=== PATIENT | female | born 1960 | race Caucasian/White ===

== ENCOUNTER 2016-11-09 17:01 | Emergency (ER) | payer MEDICAID ==
[~2016-11-09] VITALS: Ht 152.4 cm; Wt 45.4 kg
[2016-11-09 17:53] LABS: Basophils # (auto) 0.1 uL; Basophils % (auto) 0.6 % (0.0-2.0); CONDITION Y; Eosinophils # (auto) 0.1 uL; Eosinophils % (auto) 1.2 % (0.0-7.0); Hematocrit 45.2 % (36.0-46.0); Lymphocytes % (auto) 23.1 % (10.0-50.0); Mean Corpuscular Hemoglobin 30.3 pg (28.0-32.0); Mean Corpuscular Hgb Conc. 33.2 g/dL (32.0-36.0); Mean Corpuscular Volume 91.3 fL (80.0-100.0); Mean Platelet Volume 8.3 fL (7.4-10.4); Monocytes # (auto) 0.7 uL; Monocytes % (auto) 8.5 % (0.0-12.0); Neutrophils # (auto) 5.7 uL; Neutrophils % (auto) 66.6 % (37.0-80.0); Platelet Count (auto) 207 10^3/uL (140-450); Red Cell Distribution Width 14.1 % (11.6-16.0); White Blood Cell 8.6 10^3/uL (4.4-10.8)
[2016-11-09 18:24] LABS: Albumin 3.3 g/dL (3.4-5.0); BUN/Creatinine Ratio 43.3; Bilirubin, Total 0.9 mg/dL (0.2-1.0); Calcium 9.2 mg/dL (8.5-10.1); Potassium 3.7 mmol/L (3.5-5.1); Total Protein 6.4 g/dL (6.4-8.2)
[2016-11-09] MEDS ORDERED: SODIUM CHLORIDE 0.9% 1,000 ML IV ONE (23:30)
[2016-11-10 05:29] VITALS: BP 117/79
== END 2016-11-10 07:41 | disposition home or self-care (01) ==
LOC: EDBD 17:01 → ER 17:08
DX: R55 Syncope and collapse (principal); R40.4 Transient alteration of awareness; G89.29 Other chronic pain; M54.9 Dorsalgia, unspecified
CPT/HCPCS: 36415; 70450; 71010; 72125; 80053; 80307; 85025; 93005; 96360; 99285; J7030

== ENCOUNTER 2017-08-23 13:47 | Emergency (ER) | payer MEDICAID ==
[~2017-08-23] VITALS: Ht 152.4 cm; Wt 50.8 kg
[2017-08-23 13:50] VITALS: BP 129/75
[2017-09-04] MEDS ORDERED: LEVO500T21 PO (10:10)
[2017-09-04] MEDS ORDERED: METR500T PO (10:10)
== END 2017-08-23 18:48 | disposition left against medical advice (07) ==
LOC: ER 13:47
DX: M25.562 Pain in left knee (principal); Z53.21 Procedure and treatment not carried out due to patient leaving prior to being seen by health care provider

== ENCOUNTER 2017-08-24 10:34 | Emergency (ER) | payer MEDICAID ==
[~2017-08-24] VITALS: Ht 152.4 cm; Wt 50.8 kg
[2017-08-24 13:42] VITALS: BP 148/76
[2017-09-04] MEDS ORDERED: LEVO500T21 PO (10:10)
[2017-09-04] MEDS ORDERED: METR500T PO (10:10)
== END 2017-08-24 13:45 | disposition home or self-care (01) ==
LOC: ER 10:40
DX: M79.605 Pain in left leg (principal); R07.9 Chest pain, unspecified; F17.210 Nicotine dependence, cigarettes, uncomplicated; Z88.6 Allergy status to analgesic agent; Z88.8 Allergy status to other drugs, medicaments and biological substances; Z90.710 Acquired absence of both cervix and uterus; Z90.49 Acquired absence of other specified parts of digestive tract
CPT/HCPCS: 93971

== ENCOUNTER 2017-09-02 16:37 | Inpatient (IN) | payer MEDICAID ==
[~2017-09-02] VITALS: Ht 152.4 cm; Wt 51.0 kg
[2017-09-02 17:15] LABS: Basophils # (auto) 0.1 uL; Basophils % (auto) 1.1 % (0.0-2.0); Eosinophils # (auto) 0.2 uL; Eosinophils % (auto) 2.9 % (0.0-7.0); Hematocrit 50.4 % (36.0-46.0); Lymphocytes # (auto) 2.3 uL; Lymphocytes % (auto) 31.3 % (10.0-50.0); Mean Corpuscular Hemoglobin 30.3 pg (28.0-32.0); Mean Corpuscular Hgb Conc. 33.7 g/dL (32.0-36.0); Mean Corpuscular Volume 89.7 fL (80.0-100.0); Monocytes # (auto) 0.6 uL; Monocytes % (auto) 8.2 % (0.0-12.0); Neutrophils # (auto) 4.2 uL; Neutrophils % (auto) 56.5 % (37.0-80.0); Nucleated Red Blood Cells % 0.2 %; Platelet Count (auto) 218 10^3/uL (140-450); Red Blood Cells 5.62 10^6/uL (4.0-5.20); White Blood Cell 7.5 10^3/uL (4.4-10.8)
[2017-09-02 17:24] LABS: Urine Amorphous Crystal FEW /hpf (None Seen); Urine Bacteria MOD /hpf (None Seen); Urine Blood 2+ /uL (Negative); Urine Mucus FEW (None Seen); Urine Specific Gravity 1.031 (1.001-1.035); Urine WBC 23 /hpf (0 - 5)
[2017-09-02 17:28] LABS: INR 0.99 (0.9-1.15); Prothrombin Time 10.6 sec (9.27-12.13)
[2017-09-02 17:36] LABS: Alanine Aminotransferase 28 U/L (13-56); Albumin 3.7 g/dL (3.4-5.0); Alkaline Phosphatase 162 U/L (45-117); Anion Gap 7 (5-15); Aspartate Aminotransferase 28 U/L (15-37); BUN/Creatinine Ratio 6.8; Bilirubin, Total 0.7 mg/dL (0.2-1.0); Blood Urea Nitrogen 5 mg/dL (7-18); Calcium 9.4 mg/dL (8.5-10.1); Carbon Dioxide 27 mmol/L (21-32); Chloride 108 mmol/L (98-107); GFR African American 106 mL/min; GFR Non-African American 88 mL/min; Glucose 100 mg/dL (74-106); Magnesium 2.9 mg/dL (1.6-2.6); Potassium 3.7 mmol/L (3.5-5.1); Sodium 142 mmol/L (136-145); Total Protein 7.1 g/dL (6.4-8.2)
[2017-09-02] MEDS ORDERED: SODIUM CHLORIDE 0.9% 1,000 ML IVB ONE (18:20)
[2017-09-02] MEDS ORDERED: PANTOPRAZOLE 40 MG/10 ML VIAL IV ONE (18:30)
[2017-09-02] MEDS ORDERED: cefTRIAXone 1GM/10ml IVPUSH 10 ML IV ONE (22:15)
[2017-09-02] MEDS ORDERED: metroNIDAZOLE 500MG/100ML 100 ML IV ONE (22:15)
[2017-09-02] MEDS ORDERED: TEMAZEPAM 15 MG CAP PO PRN (22:30)
[2017-09-02] MEDS ORDERED: traMADol HCL 50 MG TAB PO PRN (22:30)
[2017-09-02] MEDS ORDERED: ONDANSETRON HCL 4 MG/2 ML VIAL IV PRN (22:30)
[2017-09-02 23:06] LABS: Hematocrit 47.2 % (36.0-46.0); Hemoglobin 15.9 g/dL (12.2-16.2)
[2017-09-03] VITALS (7 sets, daily range): BP systolic 99–132; BP diastolic 70–84
[2017-09-03] MEDS: metroNIDAZOLE 500MG/100ML 100 ML IV SCH ×3 (05:46→21:23)
[2017-09-03 06:39] LABS: Basophils # (auto) 0.1 uL; Eosinophils # (auto) 0.3 uL; Hematocrit 44.7 % (36.0-46.0); Lymphocytes # (auto) 1.9 uL; Lymphocytes % (auto) 31.6 % (10.0-50.0); Mean Corpuscular Hemoglobin 30.2 pg (28.0-32.0); Mean Corpuscular Hgb Conc. 33.6 g/dL (32.0-36.0); Mean Corpuscular Volume 89.9 fL (80.0-100.0); Monocytes # (auto) 0.5 uL; Monocytes % (auto) 8.9 % (0.0-12.0); Neutrophils # (auto) 3.3 uL; Neutrophils % (auto) 53.5 % (37.0-80.0); Nucleated Red Blood Cells % 0.2 %; Platelet Count (auto) 184 10^3/uL (140-450); Red Blood Cells 4.97 10^6/uL (4.0-5.20); Red Cell Distribution Width 14.2 % (11.8-14.3); White Blood Cell 6.1 10^3/uL (4.4-10.8)
[2017-09-03 06:56] LABS: Albumin 2.8 g/dL (3.4-5.0); Calcium 8.4 mg/dL (8.5-10.1); Potassium 3.9 mmol/L (3.5-5.1)
[2017-09-03 07:02] LABS: Bilirubin, Total 0.5 mg/dL (0.2-1.0); Total Protein 5.6 g/dL (6.4-8.2)
[2017-09-03] MEDS: PANTOPRAZOLE 40 MG/10 ML VIAL IV SCH (10:04)
[2017-09-03] MEDS ORDERED: cefTRIAXone 1GM/10ml IVPUSH 10 ML IV SCH (21:00)
[2017-09-04 05:00] VITALS: BP 134/91
[2017-09-04] MEDS: metroNIDAZOLE 500MG/100ML 100 ML IV SCH (06:30)
[2017-09-04 06:46] LABS: Basophils # (auto) 0.1 uL; Eosinophils # (auto) 0.2 uL; Eosinophils % (auto) 3.9 % (0.0-7.0); Hematocrit 44.5 % (36.0-46.0); Hemoglobin 15.1 g/dL (12.2-16.2); Lymphocytes # (auto) 1.9 uL; Lymphocytes % (auto) 30.6 % (10.0-50.0); Mean Corpuscular Hemoglobin 30.4 pg (28.0-32.0); Mean Corpuscular Volume 89.3 fL (80.0-100.0); Monocytes # (auto) 0.5 uL; Monocytes % (auto) 8.4 % (0.0-12.0); Neutrophils # (auto) 3.5 uL; Neutrophils % (auto) 56.1 % (37.0-80.0); Nucleated Red Blood Cells % 0.1 %; Platelet Count (auto) 169 10^3/uL (140-450); Red Blood Cells 4.98 10^6/uL (4.0-5.20); Red Cell Distribution Width 13.7 % (11.8-14.3); White Blood Cell 6.2 10^3/uL (4.4-10.8)
[2017-09-04 07:08] LABS: BUN/Creatinine Ratio 18.3; Calcium 8.8 mg/dL (8.5-10.1); Potassium 4.1 mmol/L (3.5-5.1)
[2017-09-04 08:00] VITALS: BP 125/75
[2017-09-04 08:37] VITALS: BP 125/75
[2017-09-04] MEDS: PANTOPRAZOLE 40 MG/10 ML VIAL IV SCH (09:21)
[2017-09-04] MEDS ORDERED: LACTULOSE 20Gm/30ML SOLN PO PRN (09:30)
[2017-09-04] MEDS ORDERED: LEVO500T21 PO (10:10)
[2017-09-04] MEDS ORDERED: METR500T PO (10:10)
[2017-09-04 11:51] VITALS: BP 125/75
== END 2017-09-04 12:20 | disposition home or self-care (01) | DRG 463 ==
LOC: ER 16:41 → OVERFLOW 16:42 → CENTRAL 23:44
PROVIDERS: ADMIT Nurse Practitioner; ATTEND Internal Medicine
DX: N39.0 Urinary tract infection, site not specified (principal); K57.32 Diverticulitis of large intestine without perforation or abscess without bleeding; K76.0 Fatty (change of) liver, not elsewhere classified; K62.5 Hemorrhage of anus and rectum; F17.210 Nicotine dependence, cigarettes, uncomplicated; I70.0 Atherosclerosis of aorta; K76.89 Other specified diseases of liver; K40.20 Bilateral inguinal hernia, without obstruction or gangrene, not specified as recurrent; Z90.49 Acquired absence of other specified parts of digestive tract; Z90.710 Acquired absence of both cervix and uterus; Z88.6 Allergy status to analgesic agent; Z88.5 Allergy status to narcotic agent; Z71.6 Tobacco abuse counseling
CPT/HCPCS: 36415; 71045; 74176; 76705; 80048; 80053; 81001; 83735; 84484; 85014; 85018; 85025; 85610; 86850; 86900; 86901; 87086; 93005; 94761; 96361; 96365; 96375; C9113; J3490

== ENCOUNTER 2018-01-05 09:56 | Inpatient (IN) | payer SELFPAY ==
[~2018-01-05] VITALS: Ht 152.4 cm; Wt 50.7 kg
[~2018-01-05 09:56] MED LIST: LEVO500T21 PO; METR500T PO
[2018-01-05] MEDS ORDERED: SODIUM CHLORIDE 0.9% 1,000 ML IV ONE (10:23)
[2018-01-05] MEDS ORDERED: MORPHINE SULFATE 4 MG/ML SYR/VIAL IV ONE (10:30)
[2018-01-05] MEDS ORDERED: ONDANSETRON HCL 4 MG/2 ML VIAL IV ONE (10:30)
[2018-01-05 11:03] LABS: Basophils # (auto) 0.1 uL; Basophils % (auto) 1.2 % (0.0-2.0); Eosinophils # (auto) 0.2 uL; Eosinophils % (auto) 3.5 % (0.0-7.0); Hematocrit 49.5 % (36.0-46.0); Hemoglobin 16.4 g/dL (12.2-16.2); Lymphocytes % (auto) 31.2 % (10.0-50.0); Mean Corpuscular Hgb Conc. 33.1 g/dL (32.0-36.0); Mean Corpuscular Volume 90.5 fL (80.0-100.0); Monocytes # (auto) 0.5 uL; Monocytes % (auto) 7.2 % (0.0-12.0); Neutrophils # (auto) 3.7 uL; Neutrophils % (auto) 56.9 % (37.0-80.0); Nucleated Red Blood Cells % 0.1 %; Platelet Count (auto) 220 10^3/uL (140-450); Red Blood Cells 5.47 10^6/uL (4.0-5.20); Red Cell Distribution Width 14.3 % (11.8-14.3); White Blood Cell 6.6 10^3/uL (4.4-10.8)
[2018-01-05 11:31] LABS: INR 1.04 (0.9-1.15); Partial Thromboplastin Time 29.4 sec (23.78-33.04); Prothrombin Time 11.1 sec (9.27-12.13); Sodium 138 mmol/L (136-145)
[2018-01-05 11:32] LABS: Alanine Aminotransferase 21 U/L (13-56); Alkaline Phosphatase 138 U/L (45-117); Anion Gap 4 (5-15); Aspartate Aminotransferase 26 U/L (15-37); BUN/Creatinine Ratio 12.9; Blood Urea Nitrogen 8 mg/dL (7-18); Calcium 9.3 mg/dL (8.5-10.1); Carbon Dioxide 23 mmol/L (21-32); Chloride 111 mmol/L (98-107); GFR African American 128 mL/min; GFR Non-African American 106 mL/min; Glucose 83 mg/dL (74-106)
[2018-01-05 11:33] LABS: Albumin 3.5 g/dL (3.4-5.0); Bilirubin, Total 0.5 mg/dL (0.2-1.0); Total Protein 7.2 g/dL (6.4-8.2)
[2018-01-05] MEDS ORDERED: PIPERACILLIN-TAZOB 3.375GM 100 ML IV ONE (12:00)
[2018-01-05] MEDS ORDERED: IOHEXOL 300 MG/ML 100ML BOTTLE IJ ONE (14:37)
[2018-01-05] MEDS: SODIUM CHLORIDE 0.9% 1,000 ML IV SCH (15:36)
[2018-01-05] MEDS ORDERED: KETOROLAC TROMETH 30 MG/ML 1ML VIAL IV PRN (15:45)
[2018-01-05] MEDS ORDERED: ONDANSETRON HCL 4 MG/2 ML VIAL IV PRN (15:45)
[2018-01-05] MEDS ORDERED: MORPHINE SULFATE 4 MG/ML SYR/VIAL IV PRN (15:45)
[2018-01-05] MEDS ORDERED: LORazepam 0.5 MG TAB PO PRN (15:45)
[2018-01-05] MEDS ORDERED: LACTULOSE 20Gm/30ML SOLN PO PRN (15:45)
[2018-01-05] MEDS ORDERED: NITROGLYCERIN 0.4 MG SL TAB SL PRN (15:45)
[2018-01-05] MEDS ORDERED: TEMAZEPAM 15 MG CAP PO PRN (15:45)
[2018-01-05] MEDS ORDERED: ASPirin 81 mg TAB PO ONE (16:15)
[2018-01-05 16:46] LABS: Alcohol, Urine < 3.0 mg/dL (0-5); Amphetamine Screen, Urine NEGATIVE (NEGATIVE); Barbiturate Scree,Urine NEGATIVE (NEGATIVE); Benzodiazephine Screen, Urine NEGATIVE (NEGATIVE); Cannabinoid Screen, Urine POSITIVE (NEGATIVE); Cocaine Screen, Urine NEGATIVE (NEGATIVE); Opiate Scree,Urine POSITIVE (NEGATIVE); Phencyclidine Screen, Urine NEGATIVE (NEGATIVE)
[2018-01-05 16:49] LABS: Urine Bacteria NONE SEEN /hpf (None Seen); Urine Blood 3+ /uL (Negative); Urine WBC 25 /hpf (0 - 5)
[2018-01-05] MEDS: cefTRIAXone 1GM/50ML D5W 50 ML IV SCH (17:32)
[2018-01-05 17:50] VITALS: BP 127/66
[2018-01-05 18:43] VITALS: BP 127/66
[2018-01-05 22:00] VITALS: BP 110/50
[2018-01-05] MEDS: ATORVASTATIN 20 MG TAB PO SCH (22:17)
[2018-01-05] MEDS: CLINDAMYCIN 600MG IV 50 ML IV SCH (22:17)
[2018-01-06] MEDS: SODIUM CHLORIDE 0.9% 1,000 ML IV SCH ×3 (04:06→14:14)
[2018-01-06 05:12] VITALS: BP 117/59
[2018-01-06] MEDS: CLINDAMYCIN 600MG IV 50 ML IV SCH (06:10)
[2018-01-06 06:38] LABS: Cholesterol 147 mg/dL (< 200); HDL Cholesterol 37 mg/dL (40-59); LDL Cholesterol 100 mg/dL (< 100); Triglycerides 122 mg/dL (< 150)
[2018-01-06 09:00] VITALS: BP 134/89
[2018-01-06] MEDS ORDERED: ENOXAPARIN SOD 40 MG/0.4 ML SYRINGE SC SCH (10:00)
[2018-01-06] MEDS: PANTOPRAZOLE 40 MG TAB PO SCH (10:01)
[2018-01-06] MEDS: ASPirin 81 mg TAB PO SCH (10:02)
[2018-01-06] MEDS: cefTRIAXone 1GM/50ML D5W 50 ML IV SCH (10:03)
[2018-01-06] MEDS: ENOXAPARIN SOD 30 MG/0.3 ML SYRINGE SC SCH (10:03)
[2018-01-06 13:00] VITALS: BP 118/75
[2018-01-06 16:50] VITALS: BP 108/60
[2018-01-06 22:00] VITALS: BP 123/50
[2018-01-06] MEDS: ATORVASTATIN 20 MG TAB PO SCH (22:56)
[2018-01-07] MEDS: SODIUM CHLORIDE 0.9% 1,000 ML IV SCH (01:50)
[2018-01-07 04:42] VITALS: BP 113/66
[2018-01-07 09:00] VITALS: BP_SYST 113; BP_SYST 135; BP_DIAS 64; BP_DIAS 70
[2018-01-07] MEDS: ASPirin 81 mg TAB PO SCH (09:21)
[2018-01-07] MEDS: ENOXAPARIN SOD 30 MG/0.3 ML SYRINGE SC SCH (09:21)
[2018-01-07] MEDS: cefTRIAXone 1GM/50ML D5W 50 ML IV SCH (09:21)
[2018-01-07] MEDS: PANTOPRAZOLE 40 MG TAB PO SCH (09:21)
[2018-01-07 13:10] VITALS: BP 120/72
[2018-01-07 17:30] VITALS: BP 130/87
[2018-01-07 21:46] VITALS: BP 132/76
[2018-01-07] MEDS: ATORVASTATIN 20 MG TAB PO SCH (21:56)
[2018-01-08 04:46] VITALS: BP 123/61
[2018-01-08] MEDS: HYDROmorphone HCL 2 MG/ML VL IV PRN ×4 (07:35→15:32)
[2018-01-08 09:00] VITALS: BP 124/76
[2018-01-08] MEDS: cefTRIAXone 1GM/50ML D5W 50 ML IV SCH (09:16)
[2018-01-08] MEDS: ENOXAPARIN SOD 30 MG/0.3 ML SYRINGE SC SCH (09:17)
[2018-01-08] MEDS: ASPirin 81 mg TAB PO SCH (09:17)
[2018-01-08] MEDS: traMADol HCL 50 MG TAB PO PRN ×2 (09:17→15:01)
[2018-01-08] MEDS: PANTOPRAZOLE 40 MG TAB PO SCH (09:18)
[2018-01-08] MEDS ORDERED: CYANOCOBALAMIN (B-12) 1000 MCG/1 ML VIAL IM ONE (11:15)
[2018-01-08] MEDS ORDERED: ASPI81CH43 PO (11:18)
[2018-01-08] MEDS ORDERED: ATOR10TA PO (11:18)
[2018-01-08 13:00] VITALS: BP 137/77
[2018-01-08 14:50] VITALS: BP 137/77
== END 2018-01-08 15:50 | disposition home or self-care (01) | DRG 603 ==
LOC: ER 09:56 → TELE 09:57 → TELE-CENTR 17:51
PROVIDERS: ADMIT Internal Medicine; ATTEND Internal Medicine
DX: L03.112 Cellulitis of left axilla (principal); N39.0 Urinary tract infection, site not specified; G45.9 Transient cerebral ischemic attack, unspecified; F17.210 Nicotine dependence, cigarettes, uncomplicated; R26.2 Difficulty in walking, not elsewhere classified; E86.0 Dehydration; I88.9 Nonspecific lymphadenitis, unspecified; L02.92 Furuncle, unspecified; Z90.710 Acquired absence of both cervix and uterus; Z90.49 Acquired absence of other specified parts of digestive tract; Z88.1 Allergy status to other antibiotic agents; Z88.5 Allergy status to narcotic agent; Z71.6 Tobacco abuse counseling
CPT/HCPCS: 36415; 70450; 70460; 71045; 72040; 80053; 80061; 80307; 81001; 82550; 82607; 83605; 84443; 84484; 85025; 85610; 85652; 85730; 87040; 87086; 92610; 93306; 93886; 95819; 96361; 96365; 96375; 97110; 97116; 97163; 97530; G0378; J0696; J2405; J2543; J3490

== ENCOUNTER 2018-06-30 08:34 | Emergency (ER) | payer MEDICAID, OTHER ==
[~2018-06-30] VITALS: Ht 157.5 cm; Wt 45.4 kg
[~2018-06-30 08:34] MED LIST changes: +ASPI81CH43 PO; +ATOR10TA PO; -LEVO500T21 PO; -METR500T PO
[2018-06-30 09:48] LABS: Urine Bacteria MOD /hpf (None Seen); Urine Blood 2+ /uL (Negative); Urine Mucus FEW (None Seen); Urine Specific Gravity 1.031 (1.001-1.035); Urine WBC 8 /hpf (0 - 5)
[2018-06-30 09:49] LABS: Eosinophils # (auto) 0 uL; Monocytes # (auto) 1.1 uL; Monocytes % (auto) 6.5 % (0.0-12.0); Red Blood Cells 6.16 10^6/uL (4.0-5.20)
[2018-06-30 09:51] LABS: Basophils # (auto) 0.1 uL; Basophils % (auto) 0.7 % (0.0-2.0); Hematocrit 55.1 % (36.0-46.0); Hemoglobin 18.2 g/dL (12.2-16.2); Lymphocytes # (auto) 1.4 uL; Lymphocytes % (auto) 8.3 % (10.0-50.0); Mean Corpuscular Hemoglobin 29.6 pg (28.0-32.0); Mean Corpuscular Hgb Conc. 33.1 g/dL (32.0-36.0); Mean Corpuscular Volume 89.4 fL (80.0-100.0); Neutrophils # (auto) 14.6 uL; Neutrophils % (auto) 84.5 % (37.0-80.0); Platelet Count (auto) 233 10^3/uL (140-450); Red Cell Distribution Width 14.1 % (11.8-14.3); White Blood Cell 17.3 10^3/uL (4.4-10.8)
[2018-06-30 10:04] LABS: Alcohol, Urine < 3.0 mg/dL (0-5); Amphetamine Screen, Urine POSITIVE (NEGATIVE); Barbiturate Scree,Urine NEGATIVE (NEGATIVE); Benzodiazephine Screen, Urine NEGATIVE (NEGATIVE); Cannabinoid Screen, Urine NEGATIVE (NEGATIVE); Cocaine Screen, Urine NEGATIVE (NEGATIVE); Opiate Scree,Urine NEGATIVE (NEGATIVE); Phencyclidine Screen, Urine NEGATIVE (NEGATIVE)
[2018-06-30 10:04] LABS: Albumin 3.8 g/dL (3.4-5.0); Calcium 9.5 mg/dL (8.5-10.1); Potassium 3.9 mmol/L (3.5-5.1)
[2018-06-30 10:08] LABS: BUN/Creatinine Ratio 45.3; Bilirubin, Total 1.9 mg/dL (0.2-1.0); Total Protein 7.5 g/dL (6.4-8.2)
[2018-06-30] MEDS ORDERED: MIDAZOLAM DRIP 50 mg/50mL 50 ML IV ONE (10:35)
[2018-06-30] MEDS ORDERED: MIDAZOLAM HCL 5 MG/ML-1ML VIAL ONE (10:35)
[2018-06-30] MEDS ORDERED: MIDAZOLAM DRIP 50 mg/50mL 50 ML IV SCH (10:54)
[2018-06-30] MEDS ORDERED: MIDAZOLAM HCL 5 MG/ML-1ML VIAL IV ONE (11:00)
[2018-06-30 11:56] VITALS: BP 70/40
[2018-06-30 12:08] LABS: Partial Thromboplastin Time 30.6 sec (23.78-33.04); Prothrombin Time 10.7 sec (9.27-12.13)
== END 2018-06-30 12:06 | disposition short-term general hospital (02) ==
LOC: MERGE 08:34 → EDBD 08:34 → ER 08:34
DX: I60.9 Nontraumatic subarachnoid hemorrhage, unspecified (principal); N39.0 Urinary tract infection, site not specified; F15.10 Other stimulant abuse, uncomplicated; Z86.73 Personal history of transient ischemic attack (TIA), and cerebral infarction without residual deficits
CPT/HCPCS: 31500; 36415; 51702; 70450; 71045; 80053; 80307; 81001; 85025; 85610; 85730; 93005; 99291; J2250; 94002